=== PATIENT | male | born 1990 | race African-American/Black ===

== ENCOUNTER 2016-07-16 11:52 | Emergency (ER) | payer SELFPAY ==
[~2016-07-16] VITALS: Ht 172.7 cm; Wt 60.5 kg
[~2016-07-16 11:52] MED LIST: AMOXICILLIN 8751 TAB PO; ASPIRIN 81M81 MG/TA2 PO; FLEXERIL 1010 MG/TAB PO; HUMALOG100 U/ML SC; LANTUS100 U/ML SC; LIPITOR 10MG10 MG PO; LORTAB 5/500 501 TAB PO; NAPROSYN500 MG PO; PERCOCET 325 MG1 TA2 PO; PROAIR HFA0.09 MG/AC IH; ULTRAM 50MG TAB50 MG PO; ZITHROMAX 250M250 MG PO; ZITHROMAX Z PA250 MG PO; ZOFRAN ODT4 MG PO; [UNRECOGNIZED DRUG - REMARK]
[2016-07-16 11:56] VITALS: TEMP 99.3
[2016-07-16 12:47] LABS: BASO # 0.1 (0.0-0.2); BASO % 0.9 % (0.0-2.0); EOS # 0.2 (0.0-0.7); GRAN # 5.8 (1.4-6.5); GRAN % 56.8 % (42.2-75.2); LYMPH # 3.3 (1.2-3.4); LYMPH % 32.6 % (20.0-51.0); MEAN CELL VOLUME 91 fl (80.0-100.0); MEAN CORPUSCULAR HEMOGLOBIN 33 pg (27.0-31.0); MEAN CORPUSCULAR HGB CONC 36 g/dl (33.0-37.0); MEAN PLATELET VOLUME 10.7 fl (7.4-10.4); MONO # 0.8 (0.1-0.6); MONO % 7.4 % (1.7-9.3); PLATELET COUNT 261 K/mm3 (130-400); RED BLOOD COUNT 4.61 M/mm3 (4.20-5.60); REDCELL DISTRIBUTION WIDTH-CV 11.9 % (11.5-14.5); WHITE BLOOD COUNT 10.2 K/mm3 (4.8-10.8)
[2016-07-16 12:55] LABS: ADJUSTED CALCIUM 9.7 mg/dL (8.4-10.2); ALANINE AMINOTRANSFERASE 35 U/L (21-72); ALKALINE PHOSPHATASE 60 U/L (50-136); ANION GAP 11 mmol/L (7-16); BLOOD UREA NITROGEN 8 mg/dL (9-20); CALCIUM 9.7 mg/dL (8.4-10.2); CARBON DIOXIDE 27 mmol/L (22-30); CHLORIDE 98 mmol/L (98-107); CREATININE, serum 0.83 mg/dL (0.66-1.25); POTASSIUM 4.7 mmol/L (3.4-5.0); SODIUM 136 mmol/L (137-145)
[2016-07-16 13:15] LABS: GLUCOSE 441 mg/dL (74-106)
[2016-07-16 14:42] VITALS: BP 139/96; PULSE 101
== END 2016-07-16 14:42 | disposition home or self-care (01) ==
LOC: COL.ER 11:52
PROVIDERS: Physician Assistant
DX: E10.65 Type 1 diabetes mellitus with hyperglycemia (principal); Z79.4 Long term (current) use of insulin; M25.562 Pain in left knee; M25.561 Pain in right knee
CPT/HCPCS: J1815; J7030

== ENCOUNTER 2018-09-25 17:26 | Emergency (ER) | payer SELFPAY ==
[~2018-09-25] VITALS: Ht 172.7 cm; Wt 63.6 kg
[2018-09-25 17:38] VITALS: BP 127/58; TEMP 99.3
[2018-09-25] MEDS ORDERED: NOVOLOGMIX70/30 SQ (18:44)
[2018-09-25] MEDS ORDERED: NOVOLIN R100 U/ML SQ (18:45)
[2018-09-25 20:00] VITALS: PULSE 97
== END 2018-09-25 20:00 | disposition home or self-care (01) ==
LOC: COL.ER 17:26
DX: S82.61XA Displaced fracture of lateral malleolus of right fibula, initial encounter for closed fracture (principal); E10.9 Type 1 diabetes mellitus without complications; F17.210 Nicotine dependence, cigarettes, uncomplicated; Z79.4 Long term (current) use of insulin; W19.XXXA Unspecified fall, initial encounter; Y92.009 Unspecified place in unspecified non-institutional (private) residence as the place of occurrence of the external cause
CPT/HCPCS: Q4041

== ENCOUNTER → 2021-03-14 | Emergency (ER) | payer BC ==
[~2021-03-14] VITALS: Ht 172.7 cm; Wt 77.3 kg
[~2021-03-14] MED LIST changes: +KEPPRA 500MG500 MG PO; +NORCO 325 MG-7.1 TAB PO; +NOVOLIN R100 U/ML SQ; +NOVOLOGMIX70/30 SQ
[2021-03-14 16:04] LABS: HEMATOCRIT 40.9 % (42.0-52.0); HEMOGLOBIN 13.9 g/dl (13.5-18.0); MEAN CELL VOLUME 97 fl (80.0-100.0); MEAN CORPUSCULAR HEMOGLOBIN 33 pg (27.0-31.0); MEAN CORPUSCULAR HGB CONC 34 g/dl (33.0-37.0); MEAN PLATELET VOLUME 10.6 fl (7.4-10.4); PLATELET COUNT 293 K/mm3 (130-400); RED BLOOD COUNT 4.23 M/mm3 (4.20-5.60); REDCELL DISTRIBUTION WIDTH-CV 13.2 % (11.5-14.5)
[2021-03-14 16:17] LABS: ALANINE AMINOTRANSFERASE 72 U/L (4-49); ALBUMIN 4.3 gm/dL (3.5-5.0); ALKALINE PHOSPHATASE 56 U/L (50-136); ANION GAP 9 mmol/L (7-16); AST,SGOT 64 U/L (15-37); BILIRUBIN,TOTAL 0.8 mg/dL (0.0-1.0); BLOOD UREA NITROGEN 10 mg/dL (9-20); CALCIUM 9.2 mg/dL (8.4-10.2); CARBON DIOXIDE 26 mmol/L (22-30); CHLORIDE 103 mmol/L (98-107); CREATININE, serum 0.95 (0.66-1.25); GLUCOSE 231 mg/dL (74-106); POTASSIUM 3.8 mmol/L (3.4-5.0); SODIUM 138 mmol/L (137-145); TOTAL PROTEIN 7.5 gm/dL (6.4-8.2)
[2021-03-14 16:29] LABS: LYMPHOCYTE 10 % (20.0-51.0); NEUTROPHILS 85 % (42.0-75.2); PLATELET ESTIMATE NORMAL (NORMAL)
[2021-03-14 16:30] LABS: TROPONIN-I < 0.012 ng/mL (0.000-0.035)
[2021-03-14 21:30] VITALS: BP 148/82; PULSE 80; TEMP 98.6
== END ==
LOC: COL.ER 15:02
PROVIDERS: Emergency Medicine
DX: S43.005A Unspecified dislocation of left shoulder joint, initial encounter (principal); R56.9 Unspecified convulsions; E10.10 Type 1 diabetes mellitus with ketoacidosis without coma; X58.XXXA Exposure to other specified factors, initial encounter
CPT/HCPCS: A4566; J1953; J2704; J3010; J7030; Q9967

== ENCOUNTER → 2021-03-28 | Outpatient (CLI) | payer BC | LOC: COL.RAD 10:43 | DX: Z01.812 Encounter for preprocedural laboratory examination (principal); G93.81 Temporal sclerosis | CPT/HCPCS: Q9967 ==

== ENCOUNTER 2021-04-18 10:30 | Emergency (ER) | payer BC ==
[~2021-04-18] VITALS: Ht 175.3 cm; Wt 77.3 kg
[2021-04-18 10:36] VITALS: TEMP 97.8
[2021-04-18 10:58] LABS: BASO # 0.1 K/mm3 (0.0-0.2); BASO % 0.8 % (0.0-2.0); EOS # 0.3 K/mm3 (0.0-0.7); EOS % 2.2 % (0-4.0); GRAN # 9.1 K/mm3 (1.4-6.5); GRAN % 69.9 % (42.2-75.2); HEMOGLOBIN 13.8 g/dl (13.5-18.0); LYMPH # 2.3 K/mm3 (1.2-3.4); LYMPH % 17.8 % (20.0-51.0); MEAN CELL VOLUME 97 fl (80.0-100.0); MEAN CORPUSCULAR HEMOGLOBIN 32 pg (27.0-31.0); MEAN CORPUSCULAR HGB CONC 33 g/dl (33.0-37.0); MONO # 1.2 K/mm3 (0.1-0.6); PLATELET COUNT 295 K/mm3 (130-400); RED BLOOD COUNT 4.31 M/mm3 (4.20-5.60); REDCELL DISTRIBUTION WIDTH-CV 13.4 % (11.5-14.5)
[2021-04-18 11:29] LABS: ALBUMIN 4.1 gm/dL (3.5-5.0); BILIRUBIN,TOTAL 0.4 mg/dL (0.2-1.2); C-REACTIVE PROTEIN 0.1 mg/dL (0.00-0.50); CALCIUM 9.9 mg/dL (8.4-10.2); CREATININE, serum 1.13 mg/dL (0.72-1.25); TOTAL PROTEIN 7.8 gm/dL (6.2-8.1)
[2021-04-18 11:58] LABS: COLLECTION METHOD CLEAN CATCH
[2021-04-18 12:07] LABS: AMORPHOUS CRYSTAL Present /uL; MUCOUS Present /lpf; PH 7 (5-8); SQUAMOUS EPITHELIAL None Seen /hpf; URINE APPEARANCE Hazy; URINE BACTERIA Rare /hpf; URINE BILIRUBIN Negative (NEGATIVE); URINE BLOOD Negative (NEGATIVE); URINE COLOR Yellow; URINE GLUCOSE Negative (NEGATIVE); URINE KETONE Negative (NEGATIVE); URINE LEUKOCYTE ESTERASE Negative (NEGATIVE); URINE NITRATE Negative (NEGATIVE); URINE PROTEIN(semi-quant) 1+ (NEGATIVE); URINE RBC 0-2 /hpf; URINE UROBILINOGEN Negative (NEGATIVE)
[2021-04-18 13:35] VITALS: BP 132/80; PULSE 87
== END 2021-04-18 13:44 | disposition home or self-care (01) ==
LOC: COL.ER 10:30
PROVIDERS: Family Medicine
DX: G40.909 Epilepsy, unspecified, not intractable, without status epilepticus (principal); E11.649 Type 2 diabetes mellitus with hypoglycemia without coma; E11.10 Type 2 diabetes mellitus with ketoacidosis without coma; F17.210 Nicotine dependence, cigarettes, uncomplicated; Z79.4 Long term (current) use of insulin
CPT/HCPCS: J1953; J2405; J7120

== ENCOUNTER → 2021-04-24 | Outpatient (CLI) | payer BC | LOC: COL.LAB 08:40 | DX: R56.9 Unspecified convulsions (principal); Z79.899 Other long term (current) drug therapy ==

== ENCOUNTER 2021-04-26 05:34 | Emergency (ER) | payer BC ==
[~2021-04-26] VITALS: Ht 170.2 cm; Wt 77.3 kg
[2021-04-26 05:35] VITALS: TEMP 97.7
[2021-04-26 05:52] LABS: BASO # 0.1 K/mm3 (0.0-0.2); BASO % 0.4 % (0.0-2.0); EOS # 0.1 K/mm3 (0.0-0.7); EOS % 0.6 % (0-4.0); GRAN # 16.3 K/mm3 (1.4-6.5); GRAN % 80.5 % (42.2-75.2); HEMATOCRIT 45.6 % (42.0-52.0); HEMOGLOBIN 14.8 g/dl (13.5-18.0); LYMPH # 2.2 K/mm3 (1.2-3.4); LYMPH % 10.9 % (20.0-51.0); MEAN CELL VOLUME 97 fl (80.0-100.0); MEAN CORPUSCULAR HEMOGLOBIN 32 pg (27.0-31.0); MEAN CORPUSCULAR HGB CONC 33 g/dl (33.0-37.0); MEAN PLATELET VOLUME 10.3 fl (7.4-10.4); MONO # 1.5 K/mm3 (0.1-0.6); MONO % 7.2 % (1.7-9.3); PLATELET COUNT 331 K/mm3 (130-400); RED BLOOD COUNT 4.69 M/mm3 (4.20-5.60); REDCELL DISTRIBUTION WIDTH-CV 13.2 % (11.5-14.5)
[2021-04-26 06:10] LABS: ALBUMIN 4.4 gm/dL (3.5-5.0); BILIRUBIN,TOTAL 0.3 mg/dL (0.2-1.2); CALCIUM 10.6 mg/dL (8.4-10.2); CREATININE, serum 1.24 mg/dL (0.72-1.25); POTASSIUM 3.9 mmol/L (3.5-4.5); TOTAL PROTEIN 8.4 gm/dL (6.2-8.1)
[2021-04-26 06:30] LABS: PROLACTIN 34.8 ng/mL (3.46-19.40)
[2021-04-26 06:40] LABS: COLLECTION METHOD CLEAN CATCH
[2021-04-26 06:55] LABS: MUCOUS Present /lpf; PH 5 (5-8); SQUAMOUS EPITHELIAL 0-2 /hpf; URINE APPEARANCE Clear; URINE BACTERIA None Seen /hpf; URINE BILIRUBIN Negative (NEGATIVE); URINE BLOOD Negative (NEGATIVE); URINE COLOR Yellow; URINE GLUCOSE 1+ (NEGATIVE); URINE KETONE Negative (NEGATIVE); URINE LEUKOCYTE ESTERASE Negative (NEGATIVE); URINE NITRATE Negative (NEGATIVE); URINE PROTEIN(semi-quant) 1+ (NEGATIVE); URINE RBC 0-2 /hpf; URINE UROBILINOGEN Negative (NEGATIVE); URINE WBC 0-2 /hpf
[2021-04-26 14:39] VITALS: BP 123/79; PULSE 79
== END 2021-04-26 14:39 | disposition home or self-care (01) ==
LOC: COL.ER 05:34
PROVIDERS: Student in an Organized Health Care Education/Training Program
DX: E10.649 Type 1 diabetes mellitus with hypoglycemia without coma (principal); F17.210 Nicotine dependence, cigarettes, uncomplicated; Z79.4 Long term (current) use of insulin; Z86.69 Personal history of other diseases of the nervous system and sense organs
CPT/HCPCS: J2405

== ENCOUNTER 2022-10-06 18:28 | Emergency (ER) | payer MEDICAID ==
[~2022-10-06] VITALS: Ht 172.7 cm; Wt 75.0 kg
[2022-10-06 18:40] VITALS: TEMP 98.1
[2022-10-06 20:37] VITALS: BP 142/70; PULSE 76
== END 2022-10-06 20:37 | disposition home or self-care (01) ==
LOC: COL.ER 18:28
DX: M25.511 Pain in right shoulder (principal); F17.210 Nicotine dependence, cigarettes, uncomplicated; Z28.310 Unvaccinated for COVID-19

== ENCOUNTER 2024-03-03 08:19 | Emergency (ER) | payer BC, MEDICAID ==
[~2024-03-03] VITALS: Ht 172.7 cm; Wt 31.8 kg
[2024-03-03 08:29] VITALS: TEMP 98.1
[2024-03-03] MEDS ORDERED: VOLTAREN 75 DR75 MG PO (09:26)
[2024-03-03 09:38] VITALS: PULSE 71
== END 2024-03-03 09:38 | disposition home or self-care (01) ==
LOC: COL.ER 08:19
DX: S46.911A Strain of unspecified muscle, fascia and tendon at shoulder and upper arm level, right arm, initial encounter (principal); Z87.891 Personal history of nicotine dependence; X58.XXXA Exposure to other specified factors, initial encounter